=== PATIENT | female | born 1975 | race Two or more races ===

== ENCOUNTER 2016-11-30 09:03 | Emergency (ER) | payer MEDICAID ==
[2016-11-30 13:14] VITALS: BP 105/70
== END 2016-11-30 13:14 | disposition home or self-care (01) ==
LOC: ED 09:03
DX: J30.9 Allergic rhinitis, unspecified (principal)

== ENCOUNTER 2017-10-31 08:31 | Emergency (ER) | payer MEDICAID ==
[~2017-10-31] VITALS: Ht 142.2 cm; Wt 54.0 kg
[2017-10-31 08:56] VITALS: BP 105/78
== END 2017-10-31 08:56 | disposition home or self-care (01) ==
LOC: ED 08:31
DX: H10.33 Unspecified acute conjunctivitis, bilateral (principal)